=== PATIENT | female | born 1940 | race Caucasian/White ===

== ENCOUNTER 2017-08-23 13:59 | Emergency (ER) | payer OTHER, BC ==
[~2017-08-23] VITALS: Ht 152.4 cm; Wt 78.0 kg
[~2017-08-23 13:59] MED LIST: BNC5 PO; CALC500C70 PO; CYTM25 PO; GLC500 PO; LEVO137T3 PO; MULT-506 PO; NRV/5 PO; RXC5 PO
[2017-08-23 14:02] VITALS: Ht 152.4 cm; Wt 78.0 kg
[2017-08-23] MEDS ORDERED: METF500T5 PO (14:09)
--- NOTE | 2017-08-23 15:09 | DIAGNOSTIC IMAGING REPORT ---
L TIBIA/FIBULA 2 VIEWS ROUTINE HISTORY: 77 years-old Female fall; L lower leg pain acute left leg pain status post fall COMPARISON: None available TECHNIQUE: 2 views of the left tibia and fibula FINDINGS: Moderate soft tissue swelling of the mid pretibial tissues. Bones are mildly demineralized with degenerative changes about the knee and tibiotalar joint. No acute fracture, dislocation or opaque foreign body. Margin calcified about the plantar calcaneus. Prominent marginal spurring with joint space narrowing about the midfoot. IMPRESSION: 1. No acute fracture or dislocation. 2. Moderate soft tissue swelling of the mid pretibial tissues. The above report was generated using voice recognition software. It may contain grammatical, syntax or spelling errors. Electronically signed by: Ben Malone M.D. 08/23/2017 3:08 PM Dictated Date/Time: 08/23/2017 3:07 PM
--- NOTE | 2017-08-23 15:28 | DIAGNOSTIC IMAGING REPORT ---
HEAD WITHOUT CONTRAST (CT) CLINICAL HISTORY: 77 years-old Female presenting with fall; struck head on brick house. TECHNIQUE: Multidetector CT imaging of the head was performed without the use of intravenous contrast. IV contrast: None. A dose lowering technique was used consistent with the principles of ALARA (as low as reasonably achievable). COMPARISON: None. CT DOSE (mGy.cm): The estimated cumulative dose is 638.56 mGycm. FINDINGS: [place] Hand topogram: Unremarkable. Ventricles and sulci normal in size. Brain parenchyma normal in appearance with preserved lopez-white differentiation. No mass effect or midline shift. No hemorrhage or acute territorial infarct. No extra-axial fluid collection. Paranasal sinuses and mastoid air cells clear. Calvarium intact. Minimal infiltration of the posterior scalp. No hematoma or subjacent osseous injury. IMPRESSION: 1. No acute intracranial abnormality. 2. Minimal posterior scalp contusion without subjacent osseous injury. Electronically signed by: Beau Duncan M.D. 08/23/2017 3:26 PM Dictated Date/Time: 08/23/2017 3:24 PM
[2017-08-23 15:52] VITALS: BP 150/76; PULSE 89; TEMP 37; O2SAT 96
--- NOTE | 2017-08-23 21:46 | EMERGENCY ROOM VISIT NOTE ---
ED Visit Note First contact with patient: 14:06 Chief Complaint: Left leg pain. History of Present Illness: Ms. Fine is a 77-year-old white female who ambulates into the ED accompanied by her complaining of left anterior lower leg pain. Patient reports approximately 4 hours ago she was walking out the stairs of her house, tripped over a broken step and fell to the ground. She reports when she fell to the ground her left leg was bent under her buttocks and she injured her leg. Additionally she does report she fell backwards and struck her brickhouse with the posterior aspect of the head. She reports before the fall she was not experiencing lightheadedness or dizziness, at the time of the fall she did not have a loss of consciousness and since the fall she has been having some mild posterior head pain. Currently she describes her left lower leg pain as an achy sensation. She places it just inferior to the knee to the mid tibial level. She rates her discomfort 2/10. Her pain is nonradiating. Her pain worsens with palpation. She has not identified any alleviating factors related to the pain. She has not taken medication for pain prior to arrival at the hospital. She denies any associated hip pain, thigh pain, knee pain, ankle pain, foot pain, leg weakness/ numbness/tingling. Currently she describes her posterior head pain is a very mild achy sensation. She rates this discomfort 1/10. She places this over the posterior right parietal area to the occipital area. Her pain worsens slightly with palpation. She has not identified any alleviating factors related to the pain. Once again she has not taken any medication for pain prior to arrival at the hospital. She denies any associated dizziness, lightheadedness, abnormal neurological symptoms, neck pain, nausea, vomiting, chest pain, shortness of breath. Review of Systems: As noted above in history of present illness. A all body systems were reviewed and found to be negative as noted above. Past Medical History: Diabetes, hypertension, hypothyroidism and unspecified rotator cuff repair and knee replacement. Current Medications: Medications Dose Route/Sig Max Daily Dose Days Date Category Glucophage Er (Metformin HCl) 500 Mg Tab 1,000 Mg PO BID 08/23/17 Reported Os-Martín 500 Plus D (Calcium/Vitamin D) Tab 1 Tab PO HS 05/05/14 Reported Benicar (Olmesartan Medoxomil) 5 Mg Tab 5 Mg PO HS 05/05/14 Reported Amlodipine Besylate 5 Mg Tab 5 Mg PO BID 05/05/14 Reported Liothyronine Sodium 25 Mcg Tab 25 Mcg PO QAM 05/05/14 Reported Levothyroxine Sodium 137 Mcg Tab 137 Mcg PO QAM 05/05/14 Reported Allergies to Medications: Codeine, sulfa and Tessalon Perles. Social History: Patient is currently retired; she feels safe in her home environment; she denies tobacco use and admits to social alcohol use. Physical Examination: Vital Signs: Date Time Temp Pulse Resp B/P (MAP) Pulse Ox O2 Delivery O2 Flow Rate FiO2 08/23/17 15:52 37.0 89 18 150/76 96 08/23/17 15:51 37.0 89 16 150/76 93 Room Air 08/23/17 14:02 37.1 102 16 164/76 93 Room Air GENERAL: 77-year-old female in mild distress due to pain, nontoxic-appearing, afebrile and hemodynamically stable. NEUROLOGICAL: Awake, alert and oriented to person, place and time. Answering questions appropriately and following commands. Normal gait. Good hand eye coordination. No focal motor or sensory deficits. Romberg test negative. Pronator drift test negative. Cranial nerves II through XII grossly intact. Good short-term and long-term recall. Normal rapid alternating movements of the hands. SKIN: Warm, dry and pink. No open soft tissue trauma noted. HEENT: Atraumatic and normocephalic. Skull: No bony deformity or crepitus. Patient does have some mild tenderness and what appears to be an early contusion over the posterior aspect of the right parietal area. No raccoons eyes or main signs. No drainage from the ears of the nostril; no hemotympanum. Face: No bony deformity, bony crepitus, swelling or ecchymosis. PERRLA. EOMI without nystagmus. Sclera white and conjunctiva pink. No malocclusion. No intraoral trauma. Airway is patent. Speech is normal and clear. Trachea midline. No jugular venous distention. BACK: No tenderness over the bony cervical, thoracic and spine. No step-offs, bony deformity or crepitus. Full range of motion of the cervical spine. I do note some mild tenderness over the lateral aspect of the right trapezius without spasm. No CVA tenderness. THORAX: Lungs sounds are clear to auscultation and equal bilaterally with symmetrical chest wall. No crepitus, tenderness, subcutaneous air or deformities noted. ABDOMEN: Flat, soft and nontender. Positive bowel sounds in all quadrants. No guarding, rigidity or organomegaly. PELVIS: Stable and nontender to compression and rock. UPPER EXTREMITIES: Moves extremities well on command and with purpose. No tenderness throughout the shoulders, humerus, elbows, forearms, wrists or hands. All distal neurovascular statuses are intact and equal bilaterally. LOWER EXTREMITIES: Moves extremities well on command and with purpose. No tenderness over the hips, thighs, knees, ankles and feet. Patient does have early bruising and swelling over the anterior lateral aspect of the proximal tibia area. I do not appreciate any bony deformity or crepitus. She does have full range of motion in flexion and extension of the knee and plantar flexion and dorsiflexion of the ankle against resistance. All distal neurovascular statuses are intact and equal bilaterally. ED Course: Patient is assessed as noted above. Patient's medication list was reviewed. Patient was offered pain medication and refused. Noncontrast Head CT: Was read by myself and the radiologist showing no acute intracranial abnormalities or skull fractures. Radiologist does note minimal inflammation over the posterior scalp. Tibia/fibula x-ray: Was read by myself and the radiologist showing no acute fractures or dislocations. Moderate soft tissue swelling over the mid pretibial area was noted. Patient was offered a walker and refused. Patient educated about today's findings and instructed on her treatment plan; she verbalized understanding and agreement with this plan. Clinical Impression: Status post fall. Scalp contusion. Left tibial contusion. Disposition: Patient discharged home in stable condition accompanied by her ; prior to departure she was reassessed and subjectively reported she was feeling the same. Plan: Patient was encouraged to continue her current medications as prescribed. Patient was encouraged you 650 mg of acetaminophen every 6 hours as needed for pain. Patient was encouraged use ice over areas of contusion 5-6 times a day for 20- 30 minutes. Patient was encouraged to follow-up with her primary care provider for recheck. Patient was educated on signs of head injury. Patient was encouraged return to the ED for any signs of head injury or any new/ concerning symptoms.
== END 2017-08-23 15:54 | disposition home or self-care (01) ==
LOC: C.EDB 14:00 → C.EDD 15:54
DX: S00.03XA Contusion of scalp, initial encounter (principal); S80.12XA Contusion of left lower leg, initial encounter; W01.198A Fall on same level from slipping, tripping and stumbling with subsequent striking against other object, initial encounter; E11.9 Type 2 diabetes mellitus without complications; I10 Essential (primary) hypertension; E03.9 Hypothyroidism, unspecified; Z79.84 Long term (current) use of oral hypoglycemic drugs; Z79.899 Other long term (current) drug therapy; Z88.6 Allergy status to analgesic agent; Z88.2 Allergy status to sulfonamides; Z88.8 Allergy status to other drugs, medicaments and biological substances

== ENCOUNTER → 2017-11-08 | Outpatient (CLI) | payer OTHER, BC ==
[~2017-11-08] MED LIST changes: -GLC500 PO; +METF500T5 PO; -MULT-506 PO; -RXC5 PO
== END | disposition home or self-care (01) ==
LOC: C.LAB 07:14
PROVIDERS: ATTEND Family Medicine